=== PATIENT | female | born 1940 | race Caucasian/White ===

== ENCOUNTER 2020-07-21 07:36 | Inpatient (IN) ==
[2020-07-21] MEDS ORDERED: Lidocaine HCL 4 ML Topical Solution (Laryng-O-Jet Kit Sterile Pak) TP ONE (08:03)
[2020-07-21] MEDS ORDERED: *HR* Propofol 200 MG/20 ML VIAL IVP ONE (08:09)
[2020-07-21] MEDS ORDERED: *HR* Promethazine 25 MG/ML VIAL IVP PRN ×2 (08:11→08:12)
[2020-07-21] MEDS ORDERED: Acetaminophen IV 1,000 MG/100 ML INFUS..BTL IVPB ONE (08:11)
[2020-07-21] MEDS ORDERED: Ondansetron 4 MG/2 ML VIAL IVP PRN ×3 (08:11→13:53)
[2020-07-21] MEDS ORDERED: Ketorolac 15 MG/ML VIAL IVP PRN (08:11)
[2020-07-21] MEDS ORDERED: *HR* HYDROmorphone PF 0.5 MG/0.5 ML SYRINGE IVP PRN (08:11)
[2020-07-21] MEDS ORDERED: Famotidine 20 MG/2 ML VIAL IVP ONE (08:11)
[2020-07-21] MEDS ORDERED: *HR* HYDROmorphone (PF) 1 MG/ML SYRINGE IVP PRN ×2 (08:12→13:53)
[2020-07-21] MEDS ORDERED: 0.9 % Sodium Chloride 500 ML IVC PRN ×2 (08:12→13:53)
[2020-07-21] MEDS ORDERED: Naloxone 0.4 MG/ML INJ IVP PRN ×2 (08:12→13:53)
[2020-07-21] MEDS ORDERED: Lidocaine -MPF 2% 5 ML VIAL ONE (08:13)
[2020-07-21] MEDS ORDERED: Morphine Sulfate/PF 10mg/10mL 10 MG, Bupivacaine-MPF 0.25% 125 ML in 0.9 % Sodium Chlor... EP SCH (08:15)
[2020-07-21] MEDS ORDERED: Lidocaine -MPF 2% 2 ML VIAL ONE (08:15)
[2020-07-21] MEDS ORDERED: Dexamethasone 4 MG/ML VIAL ONE (08:15)
[2020-07-21] MEDS ORDERED: *HR* Succinylcholine 200 MG/10 ML VIAL IVP ONE (08:15)
[2020-07-21] MEDS ORDERED: *HR* Rocuronium Bromide 50 MG/5 ML VIAL ONE ×2 (08:15→11:41)
[2020-07-21] MEDS ORDERED: Ringers Solution, Lactated 1,000 ML IVC SCH (08:15)
[2020-07-21] MEDS ORDERED: *HR* FentaNYL (PF) 100 MCG/2 ML VIAL ONE (08:23)
[2020-07-21] MEDS ORDERED: Piperacillin/Tazobactam 3.375 GM in 0.9 % Sodium Chloride Mini Bag 100 ML IVPB ONE (08:26)
[2020-07-21] MEDS ORDERED: Albuterol 2.5 MG/3 ML NEBULIZER IH PRN (08:26)
[2020-07-21] MEDS ORDERED: Albumin Human 5% 0 GM/0 ML IV.SOLN ONE (09:25)
[2020-07-21 10:22] LABS: Basophils % 0.5 %; Eosinophils # 0.2 K/mcL (0.0-0.6); Eosinophils % 2.4 %; Hematocrit 39.5 % (35.3-44.9); Hemoglobin 12.9 g/dL (11.5-15.4); Immature Granulocytes % 0.5 % (0-4); Lymphocytes # 1.4 K/mcL (0.6-4.6); Lymphocytes % 17.5 %; Mean Corpuscular HGB Conc 32.7 g/dL (31.6-35.5); Mean Corpuscular Hemoglobin 32.4 pg (28.0-33.3); Mean Corpuscular Volume 99.2 fL (83.0-100.0); Mean Platelet Volume 9.6 fL (9.4-12.4); Monocytes # 0.5 K/mcL (0.0-1.3); Monocytes % 5.9 %; Neutrophils # 5.7 K/mcL (1.6-8.9); Platelet Count 194 K/mcL (140-400); Red Blood Count 3.98 M/mcL (3.82-4.97); Red Cell Distribution Width 12.1 % (11.5-14.5); Segmented Neutrophils % 73.2 %; White Blood Count 7.8 K/mcL (4.3-11.1)
[2020-07-21] MEDS ORDERED: Ketorolac 15 MG/ML VIAL IVP SCH (12:00)
[2020-07-21] MEDS ORDERED: Acetaminophen IV 1,000 MG/100 ML INFUS..BTL IVPB PRN (13:53)
[2020-07-21] MEDS ORDERED: *HR* Dextrose 50 % in Water (Vial) 50 ML VIAL IVP PRN (13:55)
[2020-07-21] MEDS ORDERED: Dextrose Gel 15 GM/37.5 ML TUBE PO PRN (13:55)
[2020-07-21] MEDS: Ringers Solution, Lactated 1,000 ML IVC SCH (14:44)
[2020-07-21] MEDS: Insulin LISPRO 300 UNITS/3 ML VIAL SQ SCH (17:26)
[2020-07-22] MEDS: Ringers Solution, Lactated 1,000 ML IVC SCH (00:47)
[2020-07-22] MEDS: Insulin LISPRO 300 UNITS/3 ML VIAL SQ SCH ×5 (01:25→23:57)
[2020-07-22 05:52] LABS: Basophils % 0.1 %; Hematocrit 36.3 % (35.3-44.9); Hemoglobin 11.6 g/dL (11.5-15.4); Immature Granulocytes % 0.8 % (0-4); Lymphocytes % 4.7 %; Mean Platelet Volume 9.4 fL (9.4-12.4); Monocytes # 0.6 K/mcL (0.0-1.3); Monocytes % 3.6 %; Neutrophils # 16.3 K/mcL (1.6-8.9); Platelet Count 153 K/mcL (140-400); Red Blood Count 3.63 M/mcL (3.82-4.97); Red Cell Distribution Width 12.1 % (11.5-14.5); Segmented Neutrophils % 90.8 %
[2020-07-22 05:53] LABS: Lymphocytes # 0.8 K/mcL (0.6-4.6); White Blood Count 17.9 K/mcL (4.3-11.1)
[2020-07-22 06:12] LABS: BUN/Creatinine Ratio 26 (6-26); Blood Urea Nitrogen 22 mg/dL (8-23); Calcium 8.8 mg/dL (8.6-10.3); Carbon Dioxide 26 mEq/L (23-29); Chloride 106 mEq/L (98-107); Glucose 117 mg/dL (70-105); Magnesium 1.8 mg/dL (1.6-2.6); Osmolality,Calculated 290 (280-300); Phosphorous 2.5 mg/dL (2.7-4.5); Potassium 4.1 mEq/L (3.5-5.1); Sodium 138 mEq/L (136-145); eGFR For African Americans > 60 (> 60); eGFR For Non-African Americans > 60 (> 60)
[2020-07-22] MEDS: Pantoprazole 40 MG VIAL IVP SCH (08:14)
[2020-07-22] MEDS ORDERED: D5% in 0.45% NACL 1,000 ML IVC SCH (08:30)
[2020-07-22] MEDS: Albuterol 2.5 MG/3 ML NEBULIZER IH SCH ×5 (10:21→23:17)
[2020-07-22] MEDS: D5% in 0.45% NACL 1,000 ML IVC SCH ×2 (10:50→23:21)
[2020-07-22] MEDS: Morphine Sulfate/PF 10mg/10mL 10 MG, Bupivacaine-MPF 0.25% 125 ML in 0.9 % Sodium Chlor... EP SCH (18:49)
[2020-07-23] MEDS: Albuterol 2.5 MG/3 ML NEBULIZER IH SCH ×6 (03:41→22:50)
[2020-07-23] MEDS: Insulin LISPRO 300 UNITS/3 ML VIAL SQ SCH ×3 (06:17→17:22)
[2020-07-23 06:50] LABS: Basophils % 0.2 %; Eosinophils # 0.1 K/mcL (0.0-0.6); Eosinophils % 0.9 %; Hematocrit 31.5 % (35.3-44.9); Immature Granulocytes % 0.5 % (0-4); Lymphocytes # 0.6 K/mcL (0.6-4.6); Lymphocytes % 6.4 %; Mean Corpuscular HGB Conc 31.1 g/dL (31.6-35.5); Mean Corpuscular Hemoglobin 32.2 pg (28.0-33.3); Mean Corpuscular Volume 103.6 fL (83.0-100.0); Mean Platelet Volume 9.9 fL (9.4-12.4); Monocytes # 0.4 K/mcL (0.0-1.3); Monocytes % 4.5 %; Neutrophils # 7.7 K/mcL (1.6-8.9); Platelet Count 122 K/mcL (140-400); Red Blood Count 3.04 M/mcL (3.82-4.97); Red Cell Distribution Width 12.6 % (11.5-14.5); Segmented Neutrophils % 87.5 %
[2020-07-23 06:51] LABS: Hemoglobin 9.8 g/dL (11.5-15.4); White Blood Count 8.8 K/mcL (4.3-11.1)
[2020-07-23 07:12] LABS: BUN/Creatinine Ratio 25 (6-26); Blood Urea Nitrogen 22 mg/dL (8-23); Calcium 8.6 mg/dL (8.6-10.3); Carbon Dioxide 27 mEq/L (23-29); Chloride 106 mEq/L (98-107); Glucose 97 mg/dL (70-105); Magnesium 1.7 mg/dL (1.6-2.6); Osmolality,Calculated 291 (280-300); Phosphorous 2.7 mg/dL (2.7-4.5); Potassium 3.9 mEq/L (3.5-5.1); Sodium 139 mEq/L (136-145); eGFR For African Americans > 60 (> 60); eGFR For Non-African Americans > 60 (> 60)
[2020-07-23] MEDS: Morphine Sulfate/PF 10mg/10mL 10 MG, Bupivacaine-MPF 0.25% 125 ML in 0.9 % Sodium Chlor... EP SCH ×2 (07:41→17:23)
[2020-07-23] MEDS: Pantoprazole 40 MG VIAL IVP SCH (09:56)
[2020-07-23] MEDS: D5% in 0.45% NACL 1,000 ML IVC SCH (12:58)
[2020-07-24] MEDS: Insulin LISPRO 300 UNITS/3 ML VIAL SQ SCH ×4 (03:21→17:10)
[2020-07-24] MEDS: Albuterol 2.5 MG/3 ML NEBULIZER IH SCH ×6 (03:40→23:33)
[2020-07-24] MEDS: Acetaminophen 325 MG TABLET PO PRN (05:08)
[2020-07-24 06:02] LABS: Basophils % 0.2 %; Eosinophils # 0.2 K/mcL (0.0-0.6); Eosinophils % 2.2 %; Hematocrit 33.5 % (35.3-44.9); Hemoglobin 10.4 g/dL (11.5-15.4); Immature Granulocytes % 0.4 % (0-4); Lymphocytes # 0.7 K/mcL (0.6-4.6); Lymphocytes % 7.4 %; Mean Corpuscular Volume 99.7 fL (83.0-100.0); Mean Platelet Volume 9.6 fL (9.4-12.4); Monocytes # 0.4 K/mcL (0.0-1.3); Monocytes % 4.7 %; Neutrophils # 7.6 K/mcL (1.6-8.9); Platelet Count 143 K/mcL (140-400); Red Blood Count 3.36 M/mcL (3.82-4.97); Segmented Neutrophils % 85.1 %; White Blood Count 8.9 K/mcL (4.3-11.1)
[2020-07-24] MEDS: D5% in 0.45% NACL 1,000 ML IVC SCH (06:42)
[2020-07-24] MEDS: Pantoprazole 40 MG VIAL IVP SCH (07:27)
[2020-07-24] MEDS ORDERED: *HR* OxyCODONE/APAP 5/325 TABLET PO PRN (09:59)
[2020-07-24] MEDS ORDERED: *HR* Enoxaparin 40 MG/0.4 ML SYRINGE SQ ONE (16:00)
[2020-07-24] MEDS: Morphine Sulfate/PF 10mg/10mL 10 MG, Bupivacaine-MPF 0.25% 125 ML in 0.9 % Sodium Chlor... EP SCH (16:06)
[2020-07-24] MEDS: *HR* OxyCODONE/APAP 5/325 TABLET PO PRN (20:44)
[2020-07-25] MEDS: Insulin LISPRO 300 UNITS/3 ML VIAL SQ SCH ×5 (02:46→21:52)
[2020-07-25] MEDS: D5% in 0.45% NACL 1,000 ML IVC SCH (02:51)
[2020-07-25] MEDS: *HR* OxyCODONE/APAP 5/325 TABLET PO PRN ×2 (02:51→21:53)
[2020-07-25] MEDS: Albuterol 2.5 MG/3 ML NEBULIZER IH SCH ×6 (03:41→23:22)
[2020-07-25 05:37] LABS: Basophils % 0.3 %; Eosinophils # 0.3 K/mcL (0.0-0.6); Eosinophils % 4.5 %; Hematocrit 34.5 % (35.3-44.9); Immature Granulocytes % 0.7 % (0-4); Lymphocytes # 0.6 K/mcL (0.6-4.6); Lymphocytes % 9.3 %; Mean Corpuscular HGB Conc 31.9 g/dL (31.6-35.5); Mean Corpuscular Hemoglobin 32.1 pg (28.0-33.3); Mean Corpuscular Volume 100.6 fL (83.0-100.0); Mean Platelet Volume 9.7 fL (9.4-12.4); Monocytes # 0.3 K/mcL (0.0-1.3); Neutrophils # 4.8 K/mcL (1.6-8.9); Platelet Count 136 K/mcL (140-400); Red Blood Count 3.43 M/mcL (3.82-4.97); Segmented Neutrophils % 80.2 %
[2020-07-25 05:56] LABS: BUN/Creatinine Ratio 16 (6-26); Blood Urea Nitrogen 11 mg/dL (8-23); Calcium 8.7 mg/dL (8.6-10.3); Carbon Dioxide 30 mEq/L (23-29); Chloride 103 mEq/L (98-107); Glucose 113 mg/dL (70-105); Osmolality,Calculated 284 (280-300); Phosphorous 2.7 mg/dL (2.7-4.5); Sodium 137 mEq/L (136-145); eGFR For African Americans > 60 (> 60); eGFR For Non-African Americans > 60 (> 60)
[2020-07-25] MEDS: *HR* Enoxaparin 40 MG/0.4 ML SYRINGE SQ SCH (06:28)
[2020-07-25] MEDS: Pantoprazole 40 MG VIAL IVP SCH (09:23)
[2020-07-25] MEDS: Acetaminophen 325 MG TABLET PO PRN ×2 (11:09→17:33)
[2020-07-26] MEDS: *HR* OxyCODONE/APAP 5/325 TABLET PO PRN (04:06)
[2020-07-26] MEDS: Albuterol 2.5 MG/3 ML NEBULIZER IH SCH ×6 (04:07→23:27)
[2020-07-26] MEDS: Insulin LISPRO 300 UNITS/3 ML VIAL SQ SCH ×3 (05:09→23:16)
[2020-07-26] MEDS: *HR* Enoxaparin 40 MG/0.4 ML SYRINGE SQ SCH (05:44)
[2020-07-26] MEDS: Pantoprazole 40 MG VIAL IVP SCH (08:02)
[2020-07-26] MEDS: Acetaminophen 325 MG TABLET PO PRN (13:39)
[2020-07-27 03:32] LABS: Basophils % 0.5 %; Eosinophils # 0.2 K/mcL (0.0-0.6); Eosinophils % 3.7 %; Hematocrit 31.1 % (35.3-44.9); Immature Granulocytes % 0.6 % (0-4); Lymphocytes # 0.8 K/mcL (0.6-4.6); Lymphocytes % 12.5 %; Mean Corpuscular HGB Conc 32.2 g/dL (31.6-35.5); Mean Corpuscular Hemoglobin 32.2 pg (28.0-33.3); Mean Platelet Volume 9.5 fL (9.4-12.4); Monocytes # 0.4 K/mcL (0.0-1.3); Monocytes % 6.6 %; Platelet Count 168 K/mcL (140-400); Red Blood Count 3.11 M/mcL (3.82-4.97); Segmented Neutrophils % 76.1 %; White Blood Count 6.6 K/mcL (4.3-11.1)
[2020-07-27] MEDS: Albuterol 2.5 MG/3 ML NEBULIZER IH SCH ×3 (03:53→10:59)
[2020-07-27] MEDS: *HR* Enoxaparin 40 MG/0.4 ML SYRINGE SQ SCH (06:19)
[2020-07-27] MEDS: Insulin LISPRO 300 UNITS/3 ML VIAL SQ SCH (08:00)
[2020-07-27] MEDS: Acetaminophen 325 MG TABLET PO PRN (11:04)
[2020-07-27 11:25] VITALS: BP 133/80
[2020-07-27] MEDS ORDERED: Insulin LISPRO 300 UNITS/3 ML VIAL SQ SCH ×2 (12:15→21:00)
== END 2020-07-27 12:34 | disposition home or self-care (01) | DRG 330 ==
LOC: SAMDAY 07:36 → 3ANU 14:28
PROVIDERS: ADMIT Surgery; ATTEND Surgery

== ENCOUNTER 2020-08-12 13:36 | Observation (INO) ==
[2020-08-12] MEDS ORDERED: Ringers Solution, Lactated 1,000 ML ONE (14:17)
[2020-08-12] MEDS ORDERED: Ringers Solution, Lactated 500 ML IVC ONE (14:24)
[2020-08-12] MEDS ORDERED: Isovue-370 500 ML BOTTLE IVP ONE (14:25)
[2020-08-12 15:31] LABS: Basophils % 0.1 %; Eosinophils % 0.4 %; Immature Granulocytes % 0.7 % (0-4); Lymphocytes # 0.5 K/mcL (0.6-4.6); Lymphocytes % 6.6 %; Mean Corpuscular HGB Conc 32.4 g/dL (31.6-35.5); Mean Corpuscular Volume 98.8 fL (83.0-100.0); Mean Platelet Volume 9.5 fL (9.4-12.4); Monocytes # 0.7 K/mcL (0.0-1.3); Monocytes % 9.6 %; Neutrophils # 5.9 K/mcL (1.6-8.9); Platelet Count 146 K/mcL (140-400); Red Blood Count 3.44 M/mcL (3.82-4.97); Red Cell Distribution Width 12.3 % (11.5-14.5); Segmented Neutrophils % 82.6 %; White Blood Count 7.1 K/mcL (4.3-11.1)
[2020-08-12 15:42] LABS: Alanine Aminotransferase 15 Units/L (7-52); Amylase 15 Units/L (29-103); Aspartate Amino Transferase 30 Units/L (13-39); Lipase 7 Units/L (11-82)
[2020-08-12 15:43] LABS: Calcium 9.7 mg/dL (8.6-10.3); Potassium 3.7 mEq/L (3.5-5.1)
[2020-08-12] MEDS: Ringers Solution, Lactated 1,000 ML IVC SCH (18:19)
[2020-08-13] MEDS: Ringers Solution, Lactated 1,000 ML IVC SCH ×2 (00:43→03:28)
[2020-08-13 07:41] VITALS: BP 111/63
[2020-08-13 10:39] LABS: Bacteria,Urine Moderate per hpf (None-Few); Bilirubin,Urine Negative (Negative); Blood,Urine Negative (Negative); Clarity,Urine Turbid (Clear); Color,Urine Yellow (Yellow); Glucose,Urine (UA) Normal (Normal); Ketones,Urine Negative (Negative); Leukocyte Esterase,Urine Moderate (Negative); Mucus,Urine Few per lpf (None-Few); Nitrite,Urine Positive (Negative); Protein,Urine 30 mg/dL (Neg-Trace); Specific Gravity,Urine 1.022 (1.010-1.025); Squamous Epithelial Cell,Urine Moderate per hpf (None-Few); Urobilinogen,Urine Normal (Normal); WBC,Urine 30-50 per hpf (0-3)
== END 2020-08-13 11:31 | disposition home or self-care (01) ==
LOC: 3BNU
PROVIDERS: ADMIT Surgery; ATTEND Surgery